=== PATIENT | male | born 1995 | race Caucasian/White ===

== ENCOUNTER 2021-10-09 23:42 | Emergency (ER) | payer MEDICAID ==
[~2021-10-09] VITALS: Ht 175.3 cm; Wt 83.9 kg
[2021-10-09 23:50] VITALS: BP 142/76
--- NOTE | 2021-10-10 | NUR ---
PATIENT AMBULATED TO BED 7
--- NOTE | 2021-10-10 00:04 | NUR ---
MD TODD AT BEDSIDE
[2021-10-10 00:05] VITALS: BP 142/76
--- NOTE | 2021-10-10 00:05 | NUR ---
25/M AAOX4 AND AMBULATORY. BIB SELF C/O LEFT WRIST AND THUMB PAIN. PAIN IS SHARP, INTERMITTENT 12/31 THAT RADIATES TO THE ELBOW. PATIENT STATED THAT HE FELL OFF THE SCOOTER EARLIER TODAY AND LANDED ON THE FLOOR ON THE LEFT WRIST. PATIENT STATED "IT HURTS WITH MOVEMENT AND I CANT PUT PRESSURE ON IT". PATIENT TOOK IBUPROFEN 600MG AT 1030P WITH SOME RELIEF. PATIENT CALM AND COOPERATIVE. RR EVEN AND UNLABORED. NO S/S OF RR DISTRESS. PATIENT DENIES SOB/CP/N/V/D/C ALL NEEDS MET. PATIENT PLACED IN A GOWN. BED LOW AND LOCKED. SIDE RAIL UP FOR SAFETY. ALL NEEDS MET AT THIS TIME. PMHX DENIES MEDS IBUPROFEN NKA
[2021-10-10] MEDS ORDERED: KETOROLAC 60 MG/2 ML VIAL IM ONE (00:10)
--- NOTE | 2021-10-10 00:17 | NUR ---
XRAY WITH PT
--- NOTE | 2021-10-10 00:24 | NUR ---
MD TODD AT BEDSIDE
[2021-10-10] MEDS ORDERED: ACET-8386 PO (00:45)
[2021-10-10] MEDS ORDERED: IBUP-2213 PO (00:45)
--- NOTE | 2021-10-10 01:20 | NUR ---
Pain 2/10 and tolerable at this time
--- NOTE | 2021-10-10 01:35 | NUR ---
md delarosa at bedside
--- NOTE | 2021-10-10 01:45 | NUR ---
The patient's care was reviewed and supervised by Carey Loja RN.
--- NOTE | 2021-10-10 01:45 | NUR ---
Patient discharged with v/s stable. Written and verbal after care instructions given on wrist pain and explained. Patient alert, oriented and verbalized understanding of instructions. Ambulatory with steady gait. All questions addressed prior to discharge. ID band removed. Patient advised to follow up with PMD. Rx of Ibuprofen, and Hydrocodone/Acetaminophen given.
== END 2021-10-10 01:45 | disposition home or self-care (01) ==
LOC: MED 23:42
DX: M25.532 Pain in left wrist (principal); F17.200 Nicotine dependence, unspecified, uncomplicated; Z79.891 Long term (current) use of opiate analgesic; Z79.1 Long term (current) use of non-steroidal anti-inflammatories (NSAID); W05.1XXA Fall from non-moving nonmotorized scooter, initial encounter; Y93.89 Activity, other specified; Y92.410 Unspecified street and highway as the place of occurrence of the external cause; Y99.8 Other external cause status
CPT/HCPCS: 29125; 73110; 96372; 99283; J1885